=== PATIENT | female | born 1955 | race Caucasian/White ===

== ENCOUNTER 2018-09-23 08:36 | Inpatient (IN) | payer BC ==
[~2018-09-23] VITALS: Ht 162.6 cm; Wt 112.9 kg
[~2018-09-23 08:36] MED LIST: AMLO5 PO; ASPI81CH PO; ATOR10 PO; CALCIUM PO; CITA20 PO; GLIP10 PO; Glucophage1000 MG PO; Hair, Skin & N1 EACH PO; INSULANPEN SC; LEVSOD137 PO; LISI20 PO; PANT40 PO; TRULICITY1.5 MG/0.5 SC
[2018-09-24 04:46] LABS: BASOPHILS ABSOLUTE AUTO 0.04 K/mm3 (0.00-0.23); BASOPHILS PERCENT AUTO 0 % (0-2); EOSINOPHILS ABSOLUTE AUTO 0.01 K/mm3 (0.00-0.68); EOSINOPHILS PERCENT AUTO 0 % (0-6); Hematocrit 29.3 % (33.0-51.0); Hemoglobin 9.4 g/dL (11.5-16.0); IMMATURE GRAN ABSOLUTE AUTO 0.22 K/mm3 (0.00-0.10); IMMATURE GRAN PERCENT AUTO 1 % (0-1); LYMPHOCYTES ABSOLUTE AUTO 1.16 K/mm3 (0.84-5.20); LYMPHOCYTES PERCENT AUTO 7 % (21-46); MONOCYTES ABSOLUTE AUTO 1.18 K/mm3 (0.16-1.47); MONOCYTES PERCENT AUTO 7 % (4-13); Mean Corpuscular HGB 28.2 pg (26.0-34.0); Mean Corpuscular HGB Conc 32.1 g/dL (31.5-36.5); Mean Corpuscular Volume 88 fL (80-100); Mean Platelet Volume 9.9 fL (9.1-12.4); NEUTROPHILS PERCENT AUTO 85 % (41-73); Platelet Count 279 K/mm3 (150-400); RDW Coefficient Variation 15.3 % (11.7-14.2); Red Blood Cell Count 3.33 M/mm3 (3.80-5.20); White Blood Cell Count 17.71 K/mm3 (4.00-11.30)
[2018-09-24 05:01] LABS: Anion Gap 9 mmol/L (6-16); Blood Urea Nitrogen 19 mg/dL (8-24); Bun/Creatinine Ratio 22.3 (12.0-20.0); CO2, Blood 27 mmol/L (21-32); Chloride, Blood 100 mmol/L (98-108); Creatinine, Blood 0.85 mg/dL (0.40-1.00); Glomerular Filtration Rate >60 (60-); Glucose, Blood 214 mg/dL (70-99); Magnesium, Blood 1.4 mg/dL (1.6-2.4); Potassium, Blood 4.5 mmol/L (3.5-5.5); Sodium, Blood 136 mmol/L (136-145)
[2018-09-24] MEDS ORDERED: OXYC5 PO (14:17)
[2018-09-24] MEDS ORDERED: Ecotrin325 MG PO (14:18)
== END 2018-09-24 14:36 | disposition home or self-care (01) | DRG 470 ==
LOC: SURS 08:36 → PRE IP 11:15 → SURS 16:08
PROVIDERS: Orthopaedic Surgery
PROC: BQ101ZZ Fluoroscopy of Right Hip using Low Osmolar Contrast (ICD-10-PCS; 2018-09-23)
PROC: 0SR904A Replacement of Right Hip Joint with Ceramic on Polyethylene Synthetic Substitute, Uncemented, Open Approach (ICD-10-PCS; principal; 2018-09-23 11:15)
DX: M16.11 Unilateral primary osteoarthritis, right hip (principal); E11.9 Type 2 diabetes mellitus without complications; E03.9 Hypothyroidism, unspecified; I10 Essential (primary) hypertension; Z79.84 Long term (current) use of oral hypoglycemic drugs; Z79.82 Long term (current) use of aspirin; Z79.4 Long term (current) use of insulin; Z79.899 Other long term (current) drug therapy; Z88.0 Allergy status to penicillin; Z88.2 Allergy status to sulfonamides; Z87.891 Personal history of nicotine dependence
CPT/HCPCS: 36415; 72170; 80048; 82947; 83735; 85025; 86850; 86900; 86901; 97110; 97116; 97161; 97530; G8978; G8979; G8980; J0171; J0690; J0735; J1100; J1885; J2250; J2370; J2405; J2710; J2765; J2795; J3010; J7120

== ENCOUNTER → 2019-02-05 | Outpatient (CLI) | payer OTHER ==
[~2019-02-05] MED LIST changes: +Ecotrin325 MG PO; +OXYC5 PO
== END | disposition home or self-care (01) ==
LOC: LAB 14:34 → LAB SHORT 14:34
DX: T81.89XA Other complications of procedures, not elsewhere classified, initial encounter (principal)
CPT/HCPCS: 87070; 87075; 87205